=== PATIENT | female | born 1950 | race Caucasian/White ===

== ENCOUNTER 2018-10-07 06:33 | Day surgery (SDC) | payer OTHER ==
[2018-10-01 13:27] LABS: Urine Appearance CLEAR; Urine Bilirubin NEGATIVE (NEG); Urine Blood 1+ (NEG); Urine Color YELLOW; Urine Glucose NEGATIVE (NEG); Urine Protein NEGATIVE (NEG); Urine Urobilinogen 0.2 mg/dL (0.2-1.0); Urine pH 5.5 (5.0-7.0)
[2018-10-01 13:28] LABS: Urine Microscopic Reflex ORDER UMIC
[2018-10-01 13:31] LABS: Absolute Lymphocytes (CBC) 1.1 K/uL (0.7-4.9); Absolute Monocytes 0.7 K/uL (0.1-1.3); Absolute Neutrophil 3.4 K/uL (1.8-8.0); Basophils % 0.7 % (0-1.3); Eosinophils % 1.1 % (0-4.4); Hematocrit 38.1 % (36.0-45.0); MPV 8.7 fL (7.6-11.3); Monocytes % 12.6 % (3.3-12.3); RBC Red Blood Cell Count 4.21 M/uL (3.86-4.86)
[2018-10-01 13:53] LABS: Urine Bacteria <20 /HPF (<20); Urine Culture Reflex Order REFLEXED
[2018-10-07] MEDS ORDERED: NA CHLORIDE 0.9% 1,000 ML ONE ×2 (06:47→07:28)
[2018-10-07] MEDS ORDERED: FENTANYL CITR 100 MCG/2 ML ONE (07:31)
[2018-10-07] MEDS ORDERED: MIDAZOLAM HCL 2 MG/2 ML INJ ONE (07:32)
[2018-10-07] MEDS ORDERED: LIDOCAINE 2% MPF 5 ML VIAL ONE (07:32)
[2018-10-07] MEDS ORDERED: PROPOFOL 200 MG/20 ML VIAL IV ONE (07:32)
[2018-10-07] MEDS ORDERED: ONDANSETRON 4 MG/2 ML VIAL ONE (07:32)
[2018-10-07] MEDS: LIDOCAINE 1% W/EPI 1:100,000 MDV 50 ML VIAL ONE ×3 (07:34→08:14)
[2018-10-07] MEDS ORDERED: KETOROLAC 30 MG/ML INJ ONE (08:35)
--- NOTE | 2018-10-07 19:17 | OP ---
Date of Procedure: 10/07/2018 Surgeon: Keira Maguire MD Preoperative Diagnosis: Postmenopausal bleeding. Postoperative Diagnosis: Postmenopausal bleeding. Procedures Performed: Hysteroscopy, dilation and curettage. Complications: None. Drains: None. Specimens: Endometrial curettings, very scant amount. Condition: Stable. Findings: Endometrial cavity empty. Endometrial lining was very thin. Both tubal ostia were visual ized. Stage II anterior wall prolapse with left paravaginal defect. Description Of Procedure: After informed consent was verified, the patient was taken back to the OR, placed in a supine fashion on the operating table. After MAC was given, she was placed in a dorsal lithotomy position using Daryl stirrups. Pelvic exam was performed. There was a very obvious left p aravaginal defect in the anterolateral wall. Otherwise, unremarkable atrophic endometrium. Anterior lip of the cervix was injected with 1% lidocaine mixed with 1:100,000 epinephrine, after it was expo sed with a speculum, 8 cc was injected here, then 5 cc each on 4 and 8 o'clock positions of the cervi covaginal junction for a block. Once all this was done, prep x3 with Betadine was done. A diagnosti c hysteroscope was introduced through the cervical canal into the uterine cavity. Cavity was complet german empty and atrophic. Scope removed. Curettings performed with a 0 curette. There was a very sca nt sample that was retrieved. All instruments were removed. Instrument, needle, and sponge counts were done and were correct at the end of the case. The patient tolerated the procedure well. She wi ll follow up with me in 1 week. YFN/LIZZ Voice ID: [id number] Report ID: [id number]
== END 2018-10-07 09:18 | disposition home or self-care (01) ==
LOC: OR 06:33
PROVIDERS: ATTEND Obstetrics & Gynecology
PROC: 0UJD8ZZ Inspection of Uterus and Cervix, Via Natural or Artificial Opening Endoscopic (ICD-10-PCS; 2018-10-07)
PROC: 0UDB7ZX Extraction of Endometrium, Via Natural or Artificial Opening, Diagnostic (ICD-10-PCS; principal; 2018-10-07 07:30)
DX: N95.0 Postmenopausal bleeding (principal); I10 Essential (primary) hypertension; E03.9 Hypothyroidism, unspecified; E78.5 Hyperlipidemia, unspecified; Z85.3 Personal history of malignant neoplasm of breast; Z85.038 Personal history of other malignant neoplasm of large intestine
CPT/HCPCS: 36415; 58558; 82962; 85025; 86850; 86900; 86901; 87086; 87088; 88305; J2250; J2405; J2704; J3010; J7030 ×2; 81003; 81015